=== PATIENT | male | born 1995 ===

== ENCOUNTER 2024-06-16 08:24 | Emergency (ER) | payer MEDICAID, SELFPAY ==
[2024-06-16 08:28] VITALS: BP 131/56; PULSE 83; RESP 18; TEMP 36.9; O2SAT 96; BMI 23.8
[2024-06-16 08:58] LABS: IDNOW Serial# 08D9AD1C; Strep A Nucleic Acid Positive (Negative)
--- NOTE | 2024-06-16 09:19 | ED.GENADULT ---
HPI - General Adult General Chief complaint: Upper Respiratory Symptoms Stated complaint: Blood in urine, sore throat Time Seen by Provider: 06/16/24 09:04 Source: patient and RN notes reviewed Mode of arrival: ambulatory Limitations: no limitations History of Present Illness ED Provider: Porsche Kruse PA-C [facility] narrative: This is a 28-year-old male, with a history of IgA nephropathy, who presents to the emergency department with complaints of sore throat, body aches, nausea, subjective fevers and chills, headaches, and dark-colored urine since yesterday. He denies any dysuria. He does admit to urinary frequency and urgency. Denies any congestion, cough. He states that this presentation feels similar to the IgA nephropathy exacerbations he has had in the past. He is currently being followed by a kidney specialist out of [place]. No known fevers. No chest pain, shortness for breath, abdominal pain, nausea, vomiting or diarrhea. No other complaints or concerns at this time. MD complaint: Dark urine, sore throat Onset (ago): day(s) Radiation: non-radiation Relieving factors: none Exacerbating factors: none Associated symptoms: denies other symptoms Treatments prior to arrival: none Related Data Previous Rx's ?Medication ?Instructions ?Recorded amoxicillin 500 mg tablet 500 mg PO BID 10 days #19 tabs 06/16/24 Allergies Allergy/AdvReac Type Severity Reaction Status Date / Time acetaminophen [From VICODIN] Allergy Unknown RASH Verified 06/16/24 08:32 hydrocodone [From VICODIN] Allergy Unknown RASH Verified 06/16/24 08:32 ibuprofen [From MOTRIN] Allergy Unknown RASH Verified 06/16/24 08:32 Review of Systems Review of Systems: Yes all other systems are reviewed and are negative Constitutional: Constitutional: Reports as per [facility] Past Medical History Attestation statement: The following information was validated with the patient. Social History Social History Smoked in Last 30 Days: Yes Use of substances other than those prescribed or required for medical reasons: Yes Substance Use Type: Marijuana Advance Directives: No Advance Directives Information Provided: Yes Do you have a plan to hurt others: No Plan Physical Exam ED Vital Signs: Vital Signs - 24 hr 06/16/24 08:28 06/16/24 09:27 06/16/24 11:24 Temperature 98.4 F 99.4 F Pulse Rate 83 76 Respiratory Rate 18 16 Blood Pressure 131/56 L 113/65 Pulse Oximetry 96 96 98 Oxygen Delivery Method Room Air Room Air Room Air 06/16/24 11:57 Temperature 99.4 F Pulse Rate 76 Respiratory Rate 16 Blood Pressure 113/65 Pulse Oximetry 98 Oxygen Delivery Method Room Air BMI result Body Mass Index 23.8 Const General: cooperative, comfortable and no acute distress Orientation/consciousness: patient oriented x3 Limitations: no limitations HENMT Other: Bilateral tonsillar edema with exudates noted. Uvula is midline. Airway is widely patent. No trismus, drooling, or dysphonia. Head: Yes normal to inspection, Yes normocephalic and Yes atraumatic Ears: hearing grossly normal bilaterally and TM's normal bilaterally General nose exam: Normal external nose present Face and sinus: Yes normal facial exam Throat: Yes posterior oropharynx normal Eyes General: appearance normal, both eyes and all related structures Eyelids: Yes eyelids normal Conjunctivae: conjunctivae normal Sclerae: sclerae normal Pupils: Equal, round and reactive pupils present EOM: EOMs intact bilaterally Neck Neck: Yes normal visual inspection, Yes full ROM and Yes no lymphadenopathy Lymphatic: no lymphadenopathy noted Chest Chest palpation & inspection: normal inspection of the chest Resp Effort & Inspection: normal respiratory effort and able to speak in complete sentences Auscultation: clear to auscultation bilaterally, no crackles, no rales, no rhonchi and no wheezes Cardio Rate: regular rate Rhythm: regular rhythm Heart sounds: S1 normal heart sound present and S2 normal heart sound present GI Other: Abdomen is soft, nontender, nondistended Inspection: Yes normal to inspection General: Yes no CVA tenderness Back/Spine/Pelvis Back: no CVA tenderness Skin General skin exam: no rashes or lesions noted Trauma: no lacerations or abrasions Wounds: no wounds Neuro General: patient oriented x3 and moves all extremities Cranial nerves: Yes Equal, round and reactive pupils present Extrem General: Yes normal to inspection Right upper extremity: normal to inspection Left upper extremity: normal to inspection Right lower extremity: normal to inspection Left lower extremity: normal to inspection Course Reevaluation(s) Reevaluation #1: Patient afebrile, nontoxic-appearing, given elevated white count at 18.5, will obtain lactic and cultures. Urine returns, is brown, turbid, with a high specific gravity, proteinuria, moderate blood, moderate leuk esterases, and rbc's. There is squamous cells present. Negative nitrites. Sent message to [facility] (pt's lead quality control technician) at [phone], who will call me back for consultation. Time: 10:18 Reevaluation #2: Lactic acidosis negative. Patient used his cell phone to call his lead quality control technician as he was becoming increasingly impatient. I spoke to Dr. Moreno and went over case with him. Cover Seamer states that this is likely has exacerbation of IgA nephropathy, recommending just treatment with antibiotics and he will follow-up outpatient. His creatinine was 1.[address] Moreno. His creatinine today is 1.36. Patient given amoxicillin to treat for strep. Given strict return precautions. He understands and agrees with plan. Patient stable for discharge. Time: 12:05 Medications Administered Discontinued Medications Generic Name Dose Route Start Last Admin Trade Name Freq PRN Reason Stop Dose Admin Amoxicillin 500 mg 06/16/24 11:44 06/16/24 11:54 Amoxicillin 500 Mg Capsule PO 06/16/24 11:45 500 mg ONCE ONE Administration Medical Decision Making Medical Decision Making [facility] Narrative: This is a 28-year-old male, with a history of IgA nephropathy, who presents emergency department complaints of sore throat, body aches, subjective fevers and chills, headaches, body aches since yesterday. Vital signs within normal limits upon initial arrival. He is afebrile, speaking full sentences under no acute distress. Oropharynx is erythematous, with tonsillar exudates noted. Uvula is midline. Abdomen is soft and nontender. No CVA tenderness. Given history of IgA nephropathy and dark colored urine, will obtain basic labs. Differential Diagnosis Differential Diagnoses: The differential diagnosis associated with the presentation includes Streptococcal glomerular nephritis, IgA nephropathy, UTI, strep, URI, tonsillitis, Admission/Observation Consideration of admission/observation: Escalation of care including admission/observation considered Lab Data [facility] Lab Attestation statement: I reviewed the patient's lab results. Patient has leukocytosis at 18.5, with slight left shift, creatinine 1.36, BUN 16, T bili 1.1, urine brown, turbid, with high specific gravity, high protein, moderate blood, moderate leuk esterases, and rbc's. There is also crystals present 06/16/24 09:24 06/16/24 09:24 Labs: Lab Results 06/16/24 06/16/24 06/16/24 Range/Units 08:39 09:24 09:34 WBC 18.5 H (4.8-10.8) X10*3/uL RBC 3.93 L (4.60-5.80) X10*6/uL Hgb 12.3 L (14.0-18.0) g/dl Hct 35.0 L (42.0-52.0) % MCV 89.1 (80.0-98.0) fL MCH 31.3 (27.0-33.0) pg MCHC 35.1 (31.0-36.0) g/dl RDW 12.5 (11.0-16.0) % Plt Count 189 (160-400) X10*3/uL MPV 9.3 L (9.4-12.4) fL Immature Gran % (Auto) 0.5 H (0.0-0.4) % Neut % (Auto) 86.1 H (45-73) % Lymph % (Auto) 5.4 L (20-40) % [place] % (Auto) 7.6 (2-11) % Eos % (Auto) 0.1 (0-4) % Baso % (Auto) 0.3 (0-2) % Lymph # (Auto) 1.0 L (1.2-4.9) X10*3/uL [place] # (Auto) 1.4 H (0.1-1.2) X10*3/uL Eos # (Auto) 0.0 (0.0-0.4) X10*3/uL Baso # (Auto) 0.1 (0.0-0.2) X10*3/uL Abs Immat Gran (auto) 0.09 H (0.00-0.03) X10*3/uL Absolute Neuts (auto) 15.9 H (2.0-8.3) x10*3/uL Absolute Nucleated RBC 0.000 (0.0-0.012) X10*3/uL Nucleated RBC % (auto) 0.0 (0.0-0.2) /100WBC Sodium 138 (135-145) mmol/L Potassium 3.8 (3.3-5.1) mmol/L Chloride 104 (96-108) mmol/L Carbon Dioxide 27 (22-29) mmol/L Anion Gap 11 L (12-20) BUN 16 (9-16) mg/dL Creatinine 1.36 (0.5-1.4) mg/dL Estim Creat Clear Calc 84.5 Estimated GFR > 60 Random Glucose 96 (60-115) mg/dL Lactic Acid (0.5-2.0) mmol/L Calcium 9.4 (8.4-10.2) mg/dL Total Bilirubin 1.1 H (0.0-1.0) mg/dL Direct Bilirubin 0.4 (0.0-0.5) mg/dL AST 25 (5-37) U/L ALT 11 (0-40) U/L Alkaline Phosphatase 64 (39-117) U/L B-Natriuretic Peptide 20 (<100) pg/mL Total Protein 7.1 (6.5-8.0) g/dL Albumin 4.2 (3.5-5.0) g/dL Urine Color Brown A Urine Appearance Turbid Urine pH 5.0 (5.0-9.0) Ur Specific [place] >= 1.030 H (1.005-1.025) Urine Protein 300 (3+) H (Neg-Trace) mg/dL Urine Glucose (UA) Negative (Negative) mg/dL Urine Ketones 40 (Negative) mg/dL Urine Blood Moderate (2+) H (Negative) Urine Nitrite Negative (Negative) Ur Leukocyte Esterase Moderate (2+) H (Negative) Urine RBC 6-10 H (0-2) /HPF Urine WBC 6-10 (0-5) /HPF Ur Squamous Epith Cells 3-5 (0-2) /HPF Other Crystals Present Urine Bacteria Trace (None Seen) Hyaline Casts 0-2 (0-2) /LPF Influenza Type A (PCR) NEGATIVE (Negative) Influenza Type B (PCR) NEGATIVE (Negative) RSV RNA Qual (PCR) NEGATIVE (Negative) SARS-CoV-2 RNA (RT-PCR) NEGATIVE (Negative) S. pyogenes GrpA KRISTINA Positive A (Negative) 06/16/24 Range/Units 10:11 WBC (4.8-10.8) X10*3/uL RBC (4.60-5.80) X10*6/uL Hgb (14.0-18.0) g/dl Hct (42.0-52.0) % MCV (80.0-98.0) fL MCH (27.0-33.0) pg MCHC (31.0-36.0) g/dl RDW (11.0-16.0) % Plt Count (160-400) X10*3/uL MPV (9.4-12.4) fL Immature Gran % (Auto) (0.0-0.4) % Neut % (Auto) (45-73) % Lymph % (Auto) (20-40) % [place] % (Auto) (2-11) % Eos % (Auto) (0-4) % Baso % (Auto) (0-2) % Lymph # (Auto) (1.2-4.9) X10*3/uL [place] # (Auto) (0.1-1.2) X10*3/uL Eos # (Auto) (0.0-0.4) X10*3/uL Baso # (Auto) (0.0-0.2) X10*3/uL Abs Immat Gran (auto) (0.00-0.03) X10*3/uL Absolute Neuts (auto) (2.0-8.3) x10*3/uL Absolute Nucleated RBC (0.0-0.012) X10*3/uL Nucleated RBC % (auto) (0.0-0.2) /100WBC Sodium (135-145) mmol/L Potassium (3.3-5.1) mmol/L Chloride (96-108) mmol/L Carbon Dioxide (22-29) mmol/L Anion Gap (12-20) BUN (9-16) mg/dL Creatinine (0.5-1.4) mg/dL Estim Creat Clear Calc Estimated GFR Random Glucose (60-115) mg/dL Lactic Acid 0.7 (0.5-2.0) mmol/L Calcium (8.4-10.2) mg/dL Total Bilirubin (0.0-1.0) mg/dL Direct Bilirubin (0.0-0.5) mg/dL AST (5-37) U/L ALT (0-40) U/L Alkaline Phosphatase (39-117) U/L B-Natriuretic Peptide (<100) pg/mL Total Protein (6.5-8.0) g/dL Albumin (3.5-5.0) g/dL Urine Color Urine Appearance Urine pH (5.0-9.0) Ur Specific [place] (1.005-1.025) Urine Protein (Neg-Trace) mg/dL Urine Glucose (UA) (Negative) mg/dL Urine Ketones (Negative) mg/dL Urine Blood (Negative) Urine Nitrite (Negative) Ur Leukocyte Esterase (Negative) Urine RBC (0-2) /HPF Urine WBC (0-5) /HPF Ur Squamous Epith Cells (0-2) /HPF Other Crystals Urine Bacteria (None Seen) Hyaline Casts (0-2) /LPF Influenza Type A (PCR) (Negative) Influenza Type B (PCR) (Negative) RSV RNA Qual (PCR) (Negative) SARS-CoV-2 RNA (RT-PCR) (Negative) S. pyogenes GrpA KRISTINA (Negative) Chronic Conditions Patient?s care impacted by: Other (IgA nephropathy ) Discharge Plan Discharge Clinical Impression: Strep throat, Glomerulonephritis, streptococcal, acute Patient Disposition: Home, Self-Care Instructions: Strep Throat (ED), Hematuria (ED) Additional Instructions: You were seen in the emergency department due to sore throat and urinary symptoms. Please take prescribed antibiotic. You tested positive for strep throat today. Please take full course even if you are feeling better. Follow-up with your lead quality control technician, call today to make an follow-up appointment Drink plenty of fluids get plenty of rest. Make sure you throw away your toothbrush after being on the antibiotics for 48 hours as you can re-infect yourself. If any new or worsening symptoms occur including but not limited to worsening sore throat, inability to swallow, swelling, body aches, worsening urinary symptoms, please seek emergent care. Prescriptions: New amoxicillin 500 mg tablet 500 mg PO BID 10 Days Qty: 19 0RF Stand Alone Forms: Work/School Release Interventions: ED Discharge Assessment Last Done: 06/16/24 11:57 Discharge Date/Time: 06/16/24 11:57 Print Language: German
[2024-06-16 09:27] VITALS: O2SAT 96
[2024-06-16 09:28] LABS: MANUAL DIFF FLAG NO
[2024-06-16 09:30] LABS: Basophils Absolute Auto 0.1 X10*3/uL (0.0-0.2); Basophils Percent Auto 0.3 % (0-2); Eosinophils Percent Auto 0.1 % (0-4); Hemoglobin 12.3 g/dl (14.0-18.0); Imm Gran Abs Auto 0.09 X10*3/uL (0.00-0.03); Imm Gran Pct Auto 0.5 % (0.0-0.4); Lymphocytes Percent Auto 5.4 % (20-40); Mean Corpuscular HGB Conc 35.1 g/dl (31.0-36.0); Mean Corpuscular Hemoglobin 31.3 pg (27.0-33.0); Mean Corpuscular Volume 89.1 fL (80.0-98.0); Mean Platelet Volume 9.3 fL (9.4-12.4); Monocytes Absolute Auto 1.4 X10*3/uL (0.1-1.2); Monocytes Percent Auto 7.6 % (2-11); Neutrophils Absolute Auto 15.9 x10*3/uL (2.0-8.3); Neutrophils Percent Auto 86.1 % (45-73); Platelet Count 189 X10*3/uL (160-400); Red Blood Count 3.93 X10*6/uL (4.60-5.80); Red Cell Distribution Width 12.5 % (11.0-16.0); White Blood Count 18.5 X10*3/uL (4.8-10.8)
[2024-06-16 09:44] LABS: Appearance Urine Turbid; Glucose Urine UA Negative (Negative); Leukocyte Esterase Urine Moderate (2+) (Negative); Nitrite Urine Negative (Negative); Specific Gravity - Urine >= 1.030 (1.005-1.025); UMIC TRIGGER UACC YES; Urine Blood Moderate (2+) (Negative); Urine Ketones 40 mg/dL (Negative); Urine Protein 300 (3+) mg/dL (Neg-Trace)
[2024-06-16 09:45] LABS: Alanine Aminotransferase 11 U/L (0-40); Albumin Level 4.2 g/dL (3.5-5.0); Alkaline Phosphatase 64 U/L (39-117); Anion Gap 11 (12-20); Aspartate Amino Transferase 25 U/L (5-37); Bilirubin Direct 0.4 mg/dL (0.0-0.5); Bilirubin Total 1.1 mg/dL (0.0-1.0); Blood Urea Nitrogen 16 mg/dL (9-16); Calcium 9.4 mg/dL (8.4-10.2); Carbon Dioxide 27 mmol/L (22-29); Chloride 104 mmol/L (96-108); Creatinine Clr Calc Pharmacy 84.5; Estimated Glomerular Filt Rate > 60; Glucose Random 96 mg/dL (60-115); Potassium 3.8 mmol/L (3.3-5.1); Sodium 138 mmol/L (135-145); Total Protein 7.1 g/dL (6.5-8.0)
[2024-06-16 09:45] LABS: Color Urine Brown
[2024-06-16 09:52] LABS: Influenza A PCR NEGATIVE (Negative); Influenza B PCR NEGATIVE (Negative); Resp Syncy Virus RNA Qual PCR NEGATIVE (Negative); SARS COV2 PCR INHOUSE NEGATIVE (Negative)
[2024-06-16 09:58] LABS: Bacteria Urine Trace (None Seen); Hyaline Casts Urine 0-2 /LPF (0-2); Other Crystals Urine Present; UACC Culture Trigger YES
[2024-06-16 10:34] LABS: Lactic Acid 0.7 mmol/L (0.5-2.0)
[2024-06-16 10:40] LABS: B Type Natriuretic Peptide 20 pg/mL (<100)
[2024-06-16 11:24] VITALS: BP 113/65; PULSE 76; RESP 16; TEMP 37.4; O2SAT 98
[2024-06-16] MEDS: Amoxicillin 500 MG CAPSULE PO (11:54)
[2024-06-16 11:57] VITALS: BP 113/65; PULSE 76; RESP 16; TEMP 37.4; O2SAT 98
== END 2024-06-16 11:57 | disposition home or self-care (01) ==
PROVIDERS: Physician Assistant Medical; Emergency Provider Emergency Medicine; PCP Nurse Practitioner Family
DX: J02.0 Streptococcal pharyngitis (principal); R31.9 Hematuria, unspecified; N05.9 Unspecified nephritic syndrome with unspecified morphologic changes; M79.10 Myalgia, unspecified site; R11.2 Nausea with vomiting, unspecified; R35.0 Frequency of micturition; R50.9 Fever, unspecified; Z03.818 Encounter for observation for suspected exposure to other biological agents ruled out; Z79.899 Other long term (current) drug therapy
CPT/HCPCS: 0241U; 36415; 80053; 80076; 81001; 82248; 83605; 83880; 85025; 87040; 87086; 87651; 99283; 99284

== ENCOUNTER 2024-07-14 15:17 | Outpatient (REF) | payer MEDICAID, SELFPAY | END 2024-07-14 15:18 | disposition home or self-care (01) | LOC: HO.HOSX 15:17 | PROVIDERS: PCP Internal Medicine; Visit Provider Physician Assistant | DX: M25.561 Pain in right knee (principal); M25.562 Pain in left knee; S83.242A Other tear of medial meniscus, current injury, left knee, initial encounter | CPT/HCPCS: 73560; 73562; 99212 ==

== ENCOUNTER 2024-07-14 15:17 | Outpatient (AMB) | payer MEDICAID, SELFPAY ==
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
== END 2024-07-14 15:59 | disposition home or self-care (01) ==
PROVIDERS: PCP Internal Medicine; Visit Provider Physician Assistant
DX: S83.242A Other tear of medial meniscus, current injury, left knee, initial encounter (principal)
CPT/HCPCS: 99204

== ENCOUNTER 2024-09-09 08:26 | Outpatient (AMB) | payer MEDICAID, SELFPAY ==
--- NOTE | 2024-09-09 08:28 | A.OFFVIS_ITS ---
Vital Signs 09/09/24 08:32 Height 5 ft 11 in Weight 170 lb BMI 23.7 Intake Visit Reasons: Preop LT knee 09/21/24 NE Intake Note: Henry is a 28 year old male who presents today for a pre op appointment s/p LT knee 09/21/24 NE. Allergies acetaminophen [From VICODIN] Allergy (Unknown, Verified 07/14/24 15:21) RASH hydrocodone [From VICODIN] Allergy (Unknown, Verified 07/14/24 15:21) RASH ibuprofen [From MOTRIN] Allergy (Unknown, Verified 07/14/24 15:21) RASH HPI HPI Preop LT knee 09/21/24 NE: Details: Mr. Caldwell is a 28-year-old male who presents to the office today for his preoperative appointment pending left knee arthroscopy on 09/21/[address] White. Patient had an MRI that was performed in [place]. The MRI report is scanned into the chart however imaging has not been obtained. Earlier in the week, our office has reached out to the ordering facility and requested a disc be mailed. Reportedly, this has been done but has not been received by our office yet. [facility] Social History (Updated 07/14/24 @ 15:22 by Cielo Cassidy Hattie) Patient Tobacco Use Status: Current everyday Tobacco user Substance Use Type: Marijuana Current occupational status: employed Current occupation: [employer] Review of Systems Const All systems reviewed & are unremarkable except as noted in HPI and below Physical Exam Vital Signs: BMI result Body Mass Index 23.7 Const General: cooperative, healthy appearing, comfortable, no acute distress, well developed and alert Orientation/consciousness: patient oriented x3 HEENT Head: Yes normal to inspection, Yes normocephalic and Yes atraumatic Eyes General: appearance normal, both eyes and all related structures Resp Effort & Inspection: normal respiratory effort and able to speak in complete sentences Cardio Rate: regular rate Peripheral pulses: Peripheral pulses 2+ throughout Skin Lesions: no lesions Rashes: no rashes Neuro General: patient oriented x3 Extrem Other: Left knee: Skin intact, no erythema or joint effusion. Tenderness along the medial and lateral joint line. Full ROM with crepitus. Positive Roly?s. No ligamentous laxity. NVI. Assessment & Plan Assessment & Plan (1) Tear of medial meniscus of left knee: Code(s): S83.242A - Other tear of medial meniscus, current injury, left knee, initial encounter Category: Medical Plan Mr. Caldwell is a 28-year-old male who presents to the office today for his preoperative appointment pending left knee arthroscopy on 09/21/[address] White. Patient had an MRI that was performed in [place]. The MRI report is scanned into the chart however imaging has not been obtained. Earlier in the week, our office has reached out to the ordering facility and requested a disc be mailed. Unfortunately, the disc has not been received by our office yet. I discussed in detail the procedure and what to expect pre and post operatively. We discussed the risks, benefits and alternatives to the surgery as well as the rehabilitation course. The risks; which include, but are not limited to infection, bleeding, nerve injury, ongoing pain, swelling, and stiffness, pe rioperative risk of injury to bones and soft tissues, and blood clots. Post operative medications were sent to the pharmacy,?Oxycodone 5 mg p.o. Q 8 hours #21, p.r.n. pain, while in the office today. The patient was instructed that?he/she?should obtain the prescription prior to surgery but should not consume until after the procedure; as these should only be taken for postoperative pain management. Should the patient take these medications before surgery, a refill will not be sent to the pharmacy until their scheduled refill date.?? I?ve answered all questions and with their understanding they have consented to move forward with left knee arthroscopy with Dr. White. Medications: New oxycodone Partial Fill upon patient request. 5 mg PO Q8H PRN 21 tabs 0RF pain 7 days Coding Level of Care Code Global (22302) Diagnoses Tear of medial meniscus of left knee S83.242A
[2024-09-09 08:32] VITALS: BMI 23.7
--- OUTSIDE RECORDS SUMMARY | 2024-09-09 08:42 | XMS_ITS | Encounter Summary ---
Author Organization [facility] Address [address] [place] [phone] Phone Care Team Providers Care Financial Operations Clerk Name Role Phone Janice Lomax MD Primary Care Provider Unavailabl e Encounter Details Date Type Department Care Team (Late st Contact Info) Description 03/12/2017 Conversion Encounter [facility] - [address] [address] Social History Tobacco Use Types Packs/Day Years Used Date Smoking Tobacco: Never Assessed Sex and Gender Information Value Date Recorded Sex Assigned at Not on file Legal Sex Male 4:33 PM EDT Gender Identity Not on file Sexual Orientation Not on file documented as of this encounter Plan of Treatment Not on file documented as of this encounter Visit Diagnoses Not on filedocumented in this encounter Care Teams Financial Operations Clerk Relationship Specialty Start Date End Date Janice Lomax MD PCP - General 03/06/17 documented as of this encounter
--- OUTSIDE RECORDS SUMMARY | 2024-09-09 08:42 | XMS_ITS | Encounter Summary ---
Author Organization [facility], Address [address] [place] [address] Phone Care Team Providers Care Mainspring Torque Tester Name Role Phone Mirta Aponte MD Primary Care Provider Unav ailable Encounter Details Date Type Department Care Team (Late st Contact Info) Description 02/17/2024 Documentation Only [facility], [address] [place] [address] Tierney Gallardo [address] [place] [phone] Social History Tobacco Use Types Packs/Day Years Used Date Smoking Tobacco: Never Assessed Sex and Gender Information Value Date Recorded Sex Assigned at Not on file Legal Sex Male 9:48 AM EDT Gender Identity Not on file Sexual Orientation Not on file documented as of this encounter Plan of Treatment Not on file documented as of this encounter Visit Diagnoses Not on filedocumented in this encounter Care Teams Mainspring Torque Tester Relationship Specialty Start Date End Date Mirta Aponte MD [address] [place] [address] [place] [phone] PCP - General Internal Medicine 02/10/24 documented as of this encounter
--- OUTSIDE RECORDS SUMMARY | 2024-09-09 08:42 | XMS_ITS | Encounter Summary ---
Author Organization [facility] Address [address] [place] [address] Care Team Providers Care Soil Science Professor Name Role Phone Radha Wilcox Primary Care Provider [phone] Reason for Referral * Imaging (Routine) - Closed Specialty Diagnoses / Procedures Referred By Meaghan thornton Referred To Contact Radiology Diagnoses Asymptomatic microscopic hematuria Procedures US Retroperitoneal Complete Radha Wilcox Phone: tel: fax: [address] [address] Phone: tel: Referral ID Status Reason Start Date Expiration Date Visits Re quested Visits Authorized [id number] Closed 06/16/2024 06/16/2025 1 1 Reason for Visit * Imaging (Routine) - Closed Specialty Diagnoses / Procedures Referred By Meaghan thornton Referred To Contact Radiology Diagnoses Asymptomatic microscopic hematuria Procedures US Retroperitoneal Complete Radha Wilcox Phone: tel: fax: [address] [address] Phone: tel: Referral ID Status Reason Start Date Expiration Date Visits Re quested Visits Authorized [id number] Closed 06/16/2024 06/16/2025 1 1 Encounter Details Date Type Department Care Team (Latest Contact Info) Description 08/17/2024 2:45 PM EST - 08/17/2024 11:59 PM EST Hospital Encounter [facility] Ultrasound [address] [place] [address], [place] [address] Asymptomatic microscopic hematuria Discharge Disposition: Home or Self Care Social History Tobacco Use Types Packs/Day Years Used Date Smoking Tobacco: Never Assessed Sex and Gender Information Value Date Recorded Sex Assigned at Male 06/16/2024 11:41 AM EST Legal Sex Male 11:40 AM EST Gender Identity Male 06/22/2024 11:23 AM EST Sexual Orientation Straight 06/22/2024 11 :23 AM EST documented as of this encounter Discharge Disposition Disposition Code Departure Means Destination Home or Self Care documented in this encounter Plan of Treatment Not on file documented as of this encounter Procedures Procedure Name Priority Date/Time Associated Diagnosis Comments US RETROPERITONEAL COMPLETE Routine 08/17/2024 3:31 PM EST Asymptomatic microscopic hematuria documented in this encounter Results * US Retroperitoneal Complete (08/17/2024 3:31 PM EST) Anatomical Region Laterality Modality Body Ultrasound 08/22/2024 3:23 PM EST Narrative 08/22/2024 3:25 PM EST INDICATION: Microscopic hematuria. FINDINGS: Ultrasound of the kidneys and bladder. Bladder demonstrates normal wall thickness. There is no evidence of diverticulum. Bilateral ureteral jets are noted. Pre-void volume is 286cc. Bladder is empty after voiding. Nonvisualized ureteral jets. The right kidney measures 10.2cm and the left kidney measures 11.2cm. No hydronephrosis or nephrolithiasis is noted. There is normal cortical echogenicity and thickness. There is no evidence of renal mass. CONCLUSION: Normal ultrasound of kidneys and bladder. [id number] -------- FINAL REPORT -------- Dictated By: Mihir Aviles Dictated Date: 08/22/2024 15:23 ET Assigned Physician: Mihir Aviles Reviewed and Electronically Signed By: Mihir Aviles Signed Date: 08/22/2024 15:25 ET Workstation ID: [id number] Transcribed By: Self Edit Transcribed Date: 08/22/2024 15:23 ET Procedure Note Mihir Aviles MD - 08/22/2024 INDICATION: Microscopic hematuria. FINDINGS: Ultrasound of the kidneys and bladder. Bladder demonstrates normal wall thickness. There is no evidence ofdiverticulum. Bilateral ureteral jets are noted. Pre-void volume is 286cc.Bladder is empty after voiding. Nonvisualized ureteral jets. The right kidney measures 10.2cm and the left kidney measures 11.2cm. Nohydronephrosis or nephrolithiasis is noted. There is normal corticalechogenicity and thickness. There is no evidence of renal mass. CONCLUSION: Normal ultrasound of kidneys and bladder. [id number] -------- FINAL REPORT -------- Dictated By: Mihir Aviles Dictated Date: 08/22/2024 15:23 ET Assigned Physician: Mihir Aviles Reviewed and Electronically Signed By: Mihir Aviles Signed Date: 08/22/2024 15:25 ET Workstation ID: [id number] Transcribed By: Self Edit Transcribed Date: 08/22/2024 15:23 ET us Radha Axel IMG US PROCEDURES Final Result documented in this encounter Visit Diagnoses Diagnosis Asymptomatic microscopic hematuria documented in this encounter Care Teams Soil Science Professor Relationship Specialty Start Date End Date Radha Wilcox [address] [address] [place] [id number] PCP - General Family Medicine 06/22/24 documented as of this encounter
--- OUTSIDE RECORDS SUMMARY | 2024-09-09 08:42 | XMS_ITS | Encounter Summary ---
Author Organization [facility], Address [address] [place] [address] Phone Care Team Providers Care Sales Mgr Name Role Phone Mirta Aponte MD Primary Care Provider Unav ailable Encounter Details Date Type Department Care Team (Late st Contact Info) Description 03/25/2024 Documentation Only [facility], [address] [place] [address] [place] [address] [place] [address] Social History Tobacco Use Types Packs/Day [...] on filedocumented in this encounter Care Teams Sales Mgr Relationship Specialty Start Date End Date Mirta Aponte MD [address] [place] [address] [place] [address] PCP - General Internal Medicine 02/10/24 documented as of this encounter
--- OUTSIDE RECORDS SUMMARY | 2024-09-09 08:42 | XMS_ITS | Clinical Summary ---
Author Organization [facility], Address [address] [place] [address] [place] [address] Phone Care Team Providers Care Organisation And Methods Analyst Name Role Phone Mirta Aponte MD Primary Care Provider Unav ailable Allergies No known active allergies Medications losartan (Cozaar) 50 MG tablet Take 1 tablet (50 mg total) by mouth 1 (one) time each day 30 tablet 11 03/16/2024 5 Active Active Problems Problem Noted Date Diagnosed Date Kidney injury 02/17/2024 Social History Tobacco Use Types Packs/Day Years Used Date Smoking Tobacco: Never Assessed Sex and Gender Information Value Date Recorded Sex Assigned at Not on file Legal Sex Male 9:48 AM EDT Gender Identity Not on file Sexual Orientation Not on file Plan of Treatment Health Maintenance Due Date Last Done Comments Pneumococcal Vaccine: Pediat rics (0 to 5 Years) and At-Risk Patients (6 to 64 Years) (1 of 2 - PCV) 09/30/1999 Hepatitis B Vaccine (1 of 3 - 19+ 3-dose series) 09/29 Influenza Vaccine (#1) 2024 Insurance MEDICAID [place] Care Teams Organisation And Methods Analyst Relationship Specialty Start Date End Date Mirta Aponte MD [address] [place] [address] [place] [address] PCP - General Internal Medicine 02/10/24
--- OUTSIDE RECORDS SUMMARY | 2024-09-09 08:42 | XMS_ITS | Encounter Summary ---
Author Organization [facility], Address [address] [place] [address] Phone Care Team Providers Care Lead Data Entry Operator Name Role Phone Mirta Aponte MD Primary Care Provider Unav ailable Encounter Details Date Type Department Care Team (Late st Contact Info) Description 04/27/2024 Documentation Only [facility], [facility] [address] [place] [address] Sami Tierney [address] [place] [address] Social History Tobacco Use Types Packs/Day [...] on filedocumented in this encounter Care Teams Lead Data Entry Operator Relationship Specialty Start Date End Date Mirta Aponte MD [address] [place] [address] [address] [place] [address] PCP - General Internal Medicine 02/10/24 documented as of this encounter
--- OUTSIDE RECORDS SUMMARY | 2024-09-09 08:42 | XMS_ITS | Encounter Summary ---
Author Organization [facility], Address [address] [place] [address] Phone Care Team Providers Care Disintegrator Operator Name Role Phone Mirta Aponte MD Primary Care Provider Unav ailable Encounter Details Date Type Department Care Team (Late st Contact Info) Description 02/17/2024 Documentation Only [facility], [address] [place] [address] Tierney Gallardo [address] [place] [phone] Social History Tobacco Use Types Packs/Day [...] on filedocumented in this encounter Care Teams Disintegrator Operator Relationship Specialty Start Date End Date Mirta Aponte MD [address] [place] [address] [place] [address] PCP - General Internal Medicine 02/10/24 documented as of this encounter
--- OUTSIDE RECORDS SUMMARY | 2024-09-09 08:42 | XMS_ITS | Encounter Summary ---
Author Organization [facility], Address [address] [place] [address] Phone Care Team Providers Care Precision Grinder External Name Role Phone Mirta Aponte MD Primary Care Provider Unav ailable Encounter Details Date Type Department Care Team (Late st Contact Info) Description 02/17/2024 Documentation Only [facility], [address] [place] [address] Tierney Gallardo [address] [place] [phone] Social History Tobacco Use Types Packs/Day [...] on filedocumented in this encounter Care Teams Precision Grinder External Relationship Specialty Start Date End Date Mirta Aponte MD [address] [place] [address] [place] [address] PCP - General Internal Medicine 02/10/24 documented as of this encounter
--- OUTSIDE RECORDS SUMMARY | 2024-09-09 08:42 | XMS_ITS | Encounter Summary ---
Author Organization [facility], Address [address] [place] [address] Phone Care Team Providers Care Metal Expediter Name Role Phone Mirta Aponte MD Primary Care Provider Unav ailable Encounter Details Date Type Department Care Team (Late st Contact Info) Description 02/17/2024 Documentation Only [facility], [address] [place] [address] Tierney Gallardo [address] [place] [phone] Social History Tobacco Use Types Packs/Day [...] on filedocumented in this encounter Care Teams Metal Expediter Relationship Specialty Start Date End Date Mirta Aponte MD [address] [place] [address] [place] [address] PCP - General Internal Medicine 02/10/24 documented as of this encounter
--- OUTSIDE RECORDS SUMMARY | 2024-09-09 08:42 | XMS_ITS | Clinical Summary ---
Author Organization [facility] Address [address] [place] [address] Phone Care Team Providers Care Foot Piece Assembler Name Role Phone Janice Lomax MD Primary Care Provider Unavailabl e Immunizations Immunization Administration Dates Next Due DTP 03/19/1995,07/17/1994,03/26/1994 ,1993 DTaP 5 06/13/1998 H1N1 07/06/2009 Hep B, ped/adol 07/17/1994,1993,1993 Hib (PRP-T) 03/19/1995,07/17/1994,03/26/1994 ,1993 IPV 06/13/1998, 5,07/17/1994,03/26/1994 ,1993 Influenza, injectable, trivalent 05/24/2007,07/28 MMR 02/09/1997,03/19/1995 Meningococcal Polysaccharide 08/28/2005 Tdap 08/28/2005 Varicella 02/12/1999 Family History Relation Name Status Comments Brother Alive Father Alive Father: Allergi es /Psych. Mother Alive Mother: Asthma Social History Tobacco Use Types Packs/Day Years Used Date Smoking Tobacco: Never Assessed Sex and Gender Information Value Date Recorded Sex Assigned at Not on file Legal Sex Male 4:33 PM EDT Gender Identity Not on file Sexual Orientation Not on file Plan of Treatment Health Maintenance Due Date Last Done Comments Varicella Vaccines (2 of 2 - 2-dose childhood series) 05/07/1999 02/12/1999 Consider Men B Vaccine (1 of 2 - Bexsero 2-dose series) 2009 DTaP,Tdap,and Td Vaccines (7 - Td or Tdap) 08/28/2015 08/28/2005, 06/13/1998, 03/19/1995, Additional history exists Influenza Vaccines (#1) 2024 05/24/2007, 08/16 COVID-19 Vaccine ( season) 2024 Hepatitis B Vaccines Completed 07/17/1994, 1993, 1993 HIB Vaccines Completed 03/19/1995, 06/27, 03/26/1994, Additional history exists MMR Vaccines Completed 02/09/1997, 03/19/1995 IPV Vaccines Completed 06/13/1998, 02/25, 07/17/1994, Additional history exists HPV Vaccines Aged Out No longer eligi ble based on patient's age to complete this topic Hepatitis A Vaccines Aged Out No long er eligible based on patient's age to complete this topic Men B Vaccine Aged Out No longer elig ible based on patient's age to complete this topic Meningococcal Vaccine Aged Out No keith joy eligible based on patient's age to complete this topic Pneumococcal Vaccine Aged Out No long er eligible based on patient's age to complete this topic Care Teams Foot Piece Assembler Relationship Specialty Start Date End Date Janice Lomax MD PCP - General 03/06/17
--- OUTSIDE RECORDS SUMMARY | 2024-09-09 08:42 | XMS_ITS | Clinical Summary ---
Author Organization [facility] Address [address] [place] [address] Phone Care Team Providers Care Mold Dresser Name Role Phone AlanisLizzySbavinash Radha Primary Care Provider [phone] Encounters Date Type Department Care Team Description 08/17/2024 2:45 PM EST - 08/17/2024 11:59 PM EST Hospital Encounter [facility] Ultrasound [address] [place] [address] Asymptomatic microscopic hematuria Discharge Disposition: Home or Self Care from Last 3 Months Social History Tobacco Use Types Packs/Day Years Used Date Smoking Tobacco: Never Assessed Sex and Gender Information Value Date Recorded Sex Assigned at Male 06/16/2024 11:41 AM EST Legal Sex Male 11:40 AM EST Gender Identity Male 06/22/2024 11:23 AM EST Sexual Orientation Straight 06/22/2024 11 :23 AM EST Plan of Treatment Health Maintenance Due Date Last Done Comments DTaP,Tdap,and Td Vaccines (1 - Tdap) 2012 Hepatitis B Vaccines (1 of 3 - 19+ 3-dose series) 2012 COVID-19 Vaccine ( - 2023-2 5 season) 2024 Influenza Vaccine (#1) 2024 Depression Screening 06/16/2024 HIV Screening 06/16/2024 Social Influencers of Health Screening 06/16/2024 Hepatitis C Screening Completed 03/04/2024 , 02/04/2024 HIB Vaccines Aged Out No longer eligi ble based on patient's age to complete this topic HPV Vaccines Aged Out No longer eligi ble based on patient's age to complete this topic Hepatitis A Vaccines Aged Out No long er eligible based on patient's age to complete this topic IPV Vaccines Aged Out No longer eligi ble based on patient's age to complete this topic MMR Vaccines Aged Out No longer eligi ble based on patient's age to complete this topic Meningococcal ACWY Vaccine Aged Out N o longer eligible based on patient's age to complete this topic Meningococcal B Vacine Aged Out No lo nger eligible based on patient's age to complete this topic Pneumococcal Vaccine: Pediatrics (0 to 5 Years) and At-Risk Patients (6 to 64 Years) Aged Out No longer eligible b ased on patient's age to complete this topic RSV Immunization Patients Under 20 months Aged Out No longer eligible b ased on patient's age to complete this topic Varicella Vaccines Aged Out No longer eligible based on patient's age to complete this topic Procedures Procedure Name Priority Date/Time Associated Diagnosis Comments US RETROPERITONEAL COMPLETE Routine 08/17/2024 3:31 PM EST Asymptomatic microscopic hematuria from Last 3 Months Results * US Retroperitoneal Complete (08/17/2024 3:31 [...] CONCLUSION: Normal ultrasound of kidneys and bladder. [id number] -------- FINAL REPORT -------- Dictated By: Mihir Aviles Dictated Date: 08/22/2024 15:23 ET Assigned Physician: Mihir Aviles Reviewed and Electronically Signed By: Mihir Aviles Signed Date: 08/22/2024 15:25 ET Workstation ID: [id number] Transcribed By: Self Edit Transcribed Date: 08/22/2024 [...] CONCLUSION: Normal ultrasound of kidneys and bladder. [id number] -------- FINAL REPORT -------- Dictated By: Mihir Aviles Dictated Date: 08/22/2024 15:23 ET Assigned Physician: Mihir Aviles Reviewed and Electronically Signed By: Mihir Aviles Signed Date: 08/22/2024 15:25 ET Workstation ID: [id number] Transcribed By: Self Edit Transcribed Date: 08/22/2024 15:23 ET us Radha Uko-Abasi IMG US PROCEDURES Final Result from Last 3 Months Insurance MED[place]ID - [place] [employer] Care Teams Mold Dresser Relationship Specialty Start Date End Date Radha Wilcox [address] [place] [address] PCP - General Family Medicine 06/22/24
== END 2024-09-09 08:47 | disposition home or self-care (01) ==
PROVIDERS: PCP Nurse Practitioner Family; Visit Provider Physician Assistant
DX: S83.242A Other tear of medial meniscus, current injury, left knee, initial encounter (principal)
CPT/HCPCS: 99024

== ENCOUNTER → 2024-09-09 08:26 | Outpatient (BNVA) | payer MEDICAID, SELFPAY | PROVIDERS: PCP Nurse Practitioner Family; Visit Provider Physician Assistant | DX: Z01.818 Encounter for other preprocedural examination (principal); S83.242A Other tear of medial meniscus, current injury, left knee, initial encounter; X58.XXXA Exposure to other specified factors, initial encounter; Y93.9 Activity, unspecified; Y92.9 Unspecified place or not applicable; Y99.9 Unspecified external cause status | CPT/HCPCS: 99212 ==

== ENCOUNTER → 2024-09-21 13:26 | Day surgery (SDC) | payer MEDICAID, SELFPAY ==
[2024-09-19 08:02] VITALS: BMI 23.7
--- NOTE | 2024-09-20 10:19 | HO.ANESPROP2 ---
HPI - Anesthesia Eval Consult details Narrative: 28yo M for Left Knee Arthroscopy Unable to reach pt by phone to confirm APAP allergy PMFSH Active Problems Active Problems: All Active Problems Tear of medial meniscus of left knee (Acute) Past Medical History Medical History (Updated 09/20/24 @ 10:19 by Debo Gonzalez NP) IgA nephropathy Social History Social History (Updated 07/14/24 @ 15:22 by MINNA English) Patient Tobacco Use Status: Current everyday Tobacco user Substance Use Type: Marijuana Current occupational status: employed Current occupation: [employer] Meds Allergies Allergy/AdvReac Type Severity Reaction Status Date / Time acetaminophen [From VICODIN] Allergy Unknown RASH Verified 07/14/24 15:21 hydrocodone [From VICODIN] Allergy Unknown RASH Verified 07/14/24 15:21 ibuprofen [From MOTRIN] Allergy Unknown RASH Verified 07/14/24 15:21 Home Medications ?Medication ?Instructions ?Recorded ?Confirmed ?Last Taken ?Type losartan 50 mg tablet 50 mg PO DAILY 07/14/24 Unknown History Exam Height,Weight and Vital Signs: Height 5 ft 11 in Weight 77.111 kg Pertinent Lab Results Pertinent Lab Results: Laboratory Tests 06/16/24 09:24 Sodium 138 Potassium 3.8 Chloride 104 Carbon Dioxide 27 BUN 16 Creatinine 1.36 Assessment and Plan Assessment Anesthesia Assessment: Chart Reviewed
== END | disposition home or self-care (01) ==
LOC: HO.SSS 13:28
PROVIDERS: PCP Nurse Practitioner Family; Visit Provider Orthopaedic Surgery
DX: S83.242A Other tear of medial meniscus, current injury, left knee, initial encounter (principal); Z53.09 Procedure and treatment not carried out because of other contraindication
CPT/HCPCS: J2003; J2704; J3010

== ENCOUNTER 2024-10-18 06:08 | Day surgery (SDC) | payer MEDICAID, SELFPAY ==
[2024-10-18] VITALS (8 sets, daily range): BP systolic 107–119; BP diastolic 47–81; PULSE 52–75; RESP 16–20; TEMP 36.2–36.9; O2SAT 96–100; BMI 24.5
[2024-10-18] MEDS: Lactated Ringers 1,000 ML 50 ML IVCONT (06:35)
--- NOTE | 2024-10-18 07:32 | MHC.SHP ---
Pre-Procedural Eval Section A - 24 Hr Update-Section A only Date of Service: 10/18/24 The patient is an INPATIENT: No Changes since office visit: No Cold of Flu in the past 2 weeks, No New Medical Problems, No Changes in Medication and No Patient answered all questions The patient has been examined within 24 hours of the surgical procedure. The History & Physical has been completed within 30 days and I have reviewed it.: Yes Section B - Complete if H&P > 30 days Chief Complaint: Other tear of medial meniscus, current injury, Allergies: Allergies Allergy/AdvReac Type Severity Reaction Status Date / Time acetaminophen [From VICODIN] Allergy Unknown RASH Verified 07/14/24 15:21 hydrocodone [From VICODIN] Allergy Unknown RASH Verified 07/14/24 15:21 ibuprofen [From MOTRIN] Allergy Unknown RASH Verified 07/14/24 15:21 Plan I have reviewed the history and physical and performed a pertinent physical examination on my patient. No changes have occurred unless specified. Time Spent With Patient Time: Total time managing care of this patient today ____ minutes.
[2024-10-18] MEDS: ceFAZolin Sodium/Dextrose,Iso 2 GM/50 ML PIGGYBACK IV (07:35)
--- NOTE | 2024-10-18 07:36 | HO.ANESPROP2 ---
HPI - Anesthesia Eval Consult details Narrative: knee arthroscopy PMFSH Active Problems Active Problems: All Active Problems Tear of medial meniscus of left knee (Acute) Past Medical History Medical History IgA nephropathy Family History Family history of problems with anesthesia: No Surgical History History of Problems with Anesthesia: No Social History Social History Patient Tobacco Use Status: Current everyday Tobacco user Substance Use Type: Marijuana Substance Use Frequency: Chronic Longstanding Have you been hit, kicked, punched, or otherwise hurt by someone within the past year? If so, by whom?: No Are you DNR?: No Advance Directives: No Advance Directives Information Provided: Yes Current occupational status: employed Current occupation: [employer] Meds Allergies Allergy/AdvReac Type Severity Reaction Status Date / Time acetaminophen [From VICODIN] Allergy Unknown RASH Verified 07/14/24 15:21 hydrocodone [From VICODIN] Allergy Unknown RASH Verified 07/14/24 15:21 ibuprofen [From MOTRIN] Allergy Unknown RASH Verified 07/14/24 15:21 Active Medications: Current Medications Lactated Ringer's (Lr) 1,000 mls @ 50 mls/hr IVCONT .Q20H CHRIS Last Admin: 10/18/24 06:35 Dose: 50 mls/hr Exam Height,Weight and Vital Signs: Height 5 ft 11 in Weight 79.833 kg Last Vital Signs Temp 98.5 F 10/18/24 06:12 Pulse 75 10/18/24 06:12 Resp 20 10/18/24 06:12 BP 118/81 10/18/24 06:12 Pulse Ox 99 10/18/24 06:12 O2 Del Method Room Air 10/18/24 06:12 Airway Mallampati Class: II TM Dist: >3cm Neck ROM: Full Heart: rrr Assessment and Plan Assessment Anesthesia Assessment: Anesthesia Plan Discussed and Chart Reviewed Final Anesthetic Review Family History of Problems with Anesthesia: No History of Problems with Anesthesia: No NPO: Yes ASA Class: III (excessive marihuana smoker plus cigarettes) Final Preanesthetic Review: No Changes in Pt Med Stat, Meds/Allgs Chart Reviewed, Consent Obtained/Reviewed and Anes Risks/Benef Reviewed Patient Risk: Intermediate Procedure Risk: Low Anesthetic Plan Anesthetic Plan: GA Disposition: Standard PACU
[2024-10-18] MEDS: HYDROmorphone HCl 0.5 MG/0.5 ML SYRINGE 0.25 MG IVPUSH (08:36)
--- NOTE | 2024-10-18 12:51 | P.BOP_ITS ---
Brief Operative Note Date of Service: 10/18/24 Pre-op diagnosis: left knee MMT Post-op diagnosis: same Procedure: Partial medial meniscectomy left knee Surgeon: Cirilo White MD Anesthesia: GLMA and local Was an Foxing Cutting Machine Operator used for this Procedure?: No Estimated blood loss (mL): 5 Tourniquet time (min): 20 IV fluids (mL): 500 Pathology: none sent Condition: stable Disposition: PACU
--- NOTE | 2024-10-18 18:16 | P.OP_ITS ---
Operative Note Operative Note Date of Service: 10/18/24 Narrative: Date of Service: 10/18/24 Pre-op diagnosis: left knee MMT Post-op diagnosis: same Procedure: Partial medial meniscectomy left knee Surgeon: Cirilo White MD Anesthesia: GLMA and local Was an Roll Coating Machine Operator used for this Procedure?: No Estimated blood loss (mL): 5 Tourniquet time (min): 20 IV fluids (mL): 500 Pathology: none sent Condition: stable Disposition: PACU Procedure in detail: Patient was brought to the operating room placed supine on the arthroscopic table and prepped and draped in standard sterile fashion. A time-out was called to identify proper site proper procedure proper surgeon and IV antibiotics per weight were administered. I began by exsanguinating the limb and insufflating tourniquet to 300 mm Hg. Then made a standard anterolateral stab incision. The knee was insufflated with water and 30 degree arthroscope was placed. There was grade 0 fibrillations of the patella and suprapatellar pouch and the gutters were clean. I descended into the medial compartment where I made my medial port al under direct visualization. There was a flap tear of the body of the medial meniscus. The root was intact and there was grade 0 changes in the tibial plateau/MFCl. I used a combination of biter shaver to remove unstable portions of the meniscus. Approximately 20% meniscal volume was removed. Once I was satsfied with this the ACL was examined and found to be intact and the lateral compartment also was without the need for intervention. I then removed all instrumentation and closed the portals with skin glue. 25 mL of 2% Marcaine with epinephrine was injected into the joint and the surrounding soft tissues. Patient was then placed in sterile dressing extubated brought recovery room stable condition. There were no known complications.
== END 2024-10-18 10:17 | disposition home or self-care (01) ==
PROVIDERS: PCP Nurse Practitioner Family; Visit Provider Orthopaedic Surgery
PROC: (CPT 29870; principal; 2024-10-18 07:30)
DX: S83.242A Other tear of medial meniscus, current injury, left knee, initial encounter (principal); X58.XXXA Exposure to other specified factors, initial encounter; Y93.9 Activity, unspecified; Y92.9 Unspecified place or not applicable; Y99.9 Unspecified external cause status; N02.B1 Recurrent and persistent immunoglobulin A nephropathy with glomerular lesion; Z88.5 Allergy status to narcotic agent; Z88.6 Allergy status to analgesic agent; F17.210 Nicotine dependence, cigarettes, uncomplicated
CPT/HCPCS: 29881; J0131; J0171; J0690; J1100; J1171; J2003; J2405; J2704; J2795; J3010

== ENCOUNTER → 2024-10-18 06:08 | Outpatient (BNV) | payer MEDICAID, SELFPAY | PROVIDERS: PCP Nurse Practitioner Family; Visit Provider Orthopaedic Surgery | DX: S83.242A Other tear of medial meniscus, current injury, left knee, initial encounter (principal) | CPT/HCPCS: 29881 ==

== ENCOUNTER 2024-11-04 13:16 | Outpatient (AMB) | payer MEDICAID, SELFPAY ==
--- NOTE | 2024-11-04 13:26 | A.OFFVIS_ITS ---
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 attending pt 3 times a week. Allergies acetaminophen [From VICODIN] Allergy (Unknown, Verified 07/14/24 15:21) RASH hydrocodone [From VICODIN] Allergy (Unknown, Verified 07/14/24 15:21) RASH ibuprofen [From MOTRIN] Allergy (Unknown, Verified 07/14/24 15:21) RASH Medication List - Last Reconciled 11/04/24 by Zhao Apodaca PA-C oxycodone 5 mg PO Q6H PRN 7 days HPI HPI PO LT knee 10/18/24 NE: Details: 29-year-old gentleman returns to the office today status post left knee arthroscopy 10/18/[address] White. 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 He has no pain and is increasing activities as tolerated with caution. [facility] Medical History IgA nephropathy Social History Patient Tobacco Use Status: Current everyday Tobacco user Substance Use Type: Marijuana Current occupational status: employed Current occupation: [employer] Review of Systems Const All systems reviewed & are unremarkable except as noted in HPI and below Physical Exam Const General: cooperative and no acute distress Orientation/consciousness: patient oriented x3 Resp Effort & Inspection: normal respiratory effort and able to speak in complete sentences Cardio Peripheral pulses: Peripheral pulses 2+ throughout Neuro General: patient oriented x3 Extrem Other: Left knee incision is well healed. No erythema no joint effusion. He has full range of motion with good quad activation. Calf is supple and nontender neurovascularly intact. Results Reviewed Results Reviewed: Brief Operative Note Date of Service: 10/18/24 Pre-op diagnosis: left knee MMT Post-op diagnosis: same Procedure: Partial medial meniscectomy left knee Surgeon: Cirilo White MD Assessment & Plan Assessment & Plan (1) Tear of medial meniscus of left knee: Code(s): S83.242A - Other tear of medial meniscus, current injury, left knee, initial encounter Category: Medical Plan: The patient is progressing exceptionally well. He will continue with physical therapy to increase activities and improve function with preparation to return to work full duty on November 29. 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 If there is any questions or concerns he will contact our office otherwise follow up as needed. Coding Level of Care Code Global (03050) Diagnoses Tear of medial meniscus of left knee S83.242A
--- OUTSIDE RECORDS SUMMARY | 2024-11-04 13:43 | XMS_ITS | Encounter Summary ---
Author Organization [facility], Address [address] [place] [address] Phone Care Team Providers Care Fisheries Officer Name Role Phone Mirta Aponte MD Primary Care Provider Unav ailable Encounter Details Date Type Department Care Team (Late st Contact Info) Description 04/27/2024 Documentation Only [facility], [facility] Dr [address] [place] [address] Sami Tierney [address] [place] [phone] Social History Tobacco Use Types Packs/Day [...] on filedocumented in this encounter Care Teams Fisheries Officer Relationship Specialty Start Date End Date Mirta Aponte MD [address] [place] [address] [address] [place] [address] PCP - General Internal Medicine 02/10/24 documented as of this encounter
--- OUTSIDE RECORDS SUMMARY | 2024-11-04 13:43 | XMS_ITS | Clinical Summary ---
Author Organization [facility] Address [address] [place] [address] Phone Care Team Providers Care Director Hr Communications Name Role Phone AlanisLizzySbavinash Radha Primary Care Provider [phone] Encounters Date Type Department Care Team Description 08/17/2024 2:45 PM EST - 08/17/2024 11:59 PM EST Hospital Encounter [facility] Ultrasound [address] [place] [address] Asymptomatic microscopic hematuria Discharge Disposition: [...] age to complete this topic Meningococcal B Vaccine Aged Out No l onger eligible based on patient's age to complete [...] CONCLUSION: Normal ultrasound of kidneys and bladder. [address] -------- FINAL REPORT -------- Dictated By: Mihir Aviles Dictated Date: 08/22/2024 15:23 ET Assigned Physician: Mihir Aviles Reviewed and Electronically Signed By: Mihir Aviles Signed Date: 08/22/2024 15:25 ET Workstation ID: [id number] Transcribed By: Self Edit Transcribed Date: 08/22/2024 [...] CONCLUSION: Normal ultrasound of kidneys and bladder. [address] -------- FINAL REPORT -------- Dictated By: Mihir Aviles Dictated Date: 08/22/2024 15:23 ET Assigned Physician: Mihir Aviles Reviewed and Electronically Signed By: Mihir Aviles Signed Date: 08/22/2024 15:25 ET Workstation ID: [id number] Transcribed By: Self Edit Transcribed Date: 08/22/2024 15:23 ET us Radha Uko-Abasi IMG US PROCEDURES Final Result from Last 3 Months Insurance MEDICAID - [place] [employer] Care Teams Director Hr Communications Relationship Specialty Start Date End Date Radha Wilcox [address] [facility] [address] [place] [address] PCP - General Family Medicine 06/22/24
--- OUTSIDE RECORDS SUMMARY | 2024-11-04 13:43 | XMS_ITS | Encounter Summary ---
Author Organization [facility], Address [address] [place] [address] Phone Care Team Providers Care Gin Pole Operator Name Role Phone Mirta Aponte MD Primary Care Provider Unav ailable Encounter Details Date Type Department Care Team (Late st Contact Info) Description 02/17/2024 Documentation Only [facility], [address] [place] [address] Tierney Gallardo [address] [place] [phone] Social History Tobacco Use Types Packs/Day [...] on filedocumented in this encounter Care Teams Gin Pole Operator Relationship Specialty Start Date End Date Mirta Aponte MD [address] [place] [address] [place] [address] PCP - General Internal Medicine 02/10/24 documented as of this encounter
--- OUTSIDE RECORDS SUMMARY | 2024-11-04 13:43 | XMS_ITS | Encounter Summary ---
Author Organization [facility], Address [address] [place] [address] Phone Care Team Providers Care Dry House Operator Name Role Phone Mirta Aponte MD Primary Care Provider Unav ailable Encounter Details Date Type Department Care Team (Late st Contact Info) Description 02/17/2024 Documentation Only [facility], [address] [place] [address] Tierney Gallardo [address] [place] [phone] Social History Tobacco Use Types Packs/Day [...] on filedocumented in this encounter Care Teams Dry House Operator Relationship Specialty Start Date End Date Mirta Aponte MD [address] [place] [address] [place] [address] PCP - General Internal Medicine 02/10/24 documented as of this encounter
--- OUTSIDE RECORDS SUMMARY | 2024-11-04 13:43 | XMS_ITS | Encounter Summary ---
Author Organization [facility], Address [address] [place] [address] Phone Care Team Providers Care Trimming Machine Operator Name Role Phone Mirta Aponte MD Primary Care Provider Unav ailable Encounter Details Date Type Department Care Team (Late st Contact Info) Description 02/17/2024 Documentation Only [facility], [address] [place] [address] Tierney Gallardo [address] [place] [phone] Social History Tobacco Use Types Packs/Day [...] on filedocumented in this encounter Care Teams Trimming Machine Operator Relationship Specialty Start Date End Date Mirta Aponte MD [address] [place] [address] [place] [address] PCP - General Internal Medicine 02/10/24 documented as of this encounter
--- OUTSIDE RECORDS SUMMARY | 2024-11-04 13:43 | XMS_ITS | Encounter Summary ---
Author Organization [facility], Address [address] [place] [address] Phone Care Team Providers Care Patcher Name Role Phone Mirta Aponte MD Primary Care Provider Unav ailable Encounter Details Date Type Department Care Team (Late st Contact Info) Description 03/25/2024 Documentation Only [facility], [address] [place] [address] [place] [address] [place] [address] Social History Tobacco Use Types [...] on filedocumented in this encounter Care Teams Patcher Relationship Specialty Start Date End Date Mirta Aponte MD [address] [place] [address] [place] [address] PCP - General Internal Medicine 02/10/24 documented as of this encounter
--- OUTSIDE RECORDS SUMMARY | 2024-11-04 13:43 | XMS_ITS | Encounter Summary ---
Author Organization [facility] Address [address] [place] [address] Phone Care Team Providers Care Communication Manager Name Role Phone Janice Lomax MD Primary Care Provider Unavailabl e Encounter Details Date Type Department Care Team (Late st Contact Info) Description 03/12/2017 Conversion Encounter [facility] - [address] [address] Social History Tobacco Use Types Packs/Day Years [...] on filedocumented in this encounter Care Teams Communication Manager Relationship Specialty Start Date End Date Janice Lomax MD PCP - General 03/06/17 documented as of this encounter
--- OUTSIDE RECORDS SUMMARY | 2024-11-04 13:43 | XMS_ITS | Clinical Summary ---
Author Organization [facility], Address [address] [place] [address] [place] [address] Phone Care Team Providers Care Cartoonist Special Effects Name Role Phone Mirta Aponte MD Primary [...] Due Date Last Done Comments Pneumococcal Vaccine: Peds ( 0 to 5 Years) and At-Risk Patients (6 to 49 Years) (1 of 2 - PCV) 09/30/1999 Hepatitis B Vaccine (1 of 3 - 19+ 3-dose series) 09/29 Influenza Vaccine (Season Ended) 2025 Insurance Medicaid [place] Care Teams Cartoonist Special Effects Relationship Specialty Start Date End Date Mirta Aponte MD [address] [place] [address] [place] [address] PCP - General Internal Medicine 02/10/24
--- OUTSIDE RECORDS SUMMARY | 2024-11-04 13:43 | XMS_ITS | Clinical Summary ---
Author Organization [facility] Address [address] [place] [address] Phone Care Team Providers Care Stud Master/Mistress Name Role Phone Janice Lomax MD Primary [...] 2 - 2-dose childhood series) 05/07/1999 02/12/1999 DTaP,Tdap,and Td Vaccines (7 - Td or [...] age to complete this topic Care Teams Stud Master/Mistress Relationship Specialty Start Date End Date Janice Lomax MD PCP - General 03/06/17
--- OUTSIDE RECORDS SUMMARY | 2024-11-04 13:43 | XMS_ITS | Encounter Summary ---
Author Organization [facility], Address [address] [place] [address] Phone Care Team Providers Care Search Lead Name Role Phone Mirta Aponte MD Primary Care Provider Unav ailable Encounter Details Date Type Department Care Team (Late st Contact Info) Description 02/17/2024 Documentation Only [facility], [address] [place] [address] Tierney Gallardo [address] [place] [phone] Social History Tobacco Use Types Packs/Day [...] on filedocumented in this encounter Care Teams Search Lead Relationship Specialty Start Date End Date Mirta Aponte MD [address] [place] [address] [place] [address] PCP - General Internal Medicine 02/10/24 documented as of this encounter
== END 2024-11-04 13:43 | disposition home or self-care (01) ==
LOC: HO.HOS 13:17
PROVIDERS: PCP Nurse Practitioner Family; Visit Provider Physician Assistant
DX: S83.242A Other tear of medial meniscus, current injury, left knee, initial encounter (principal)
CPT/HCPCS: 99024

== ENCOUNTER → 2024-11-04 13:16 | Outpatient (BNVA) | payer MEDICAID, SELFPAY | PROVIDERS: PCP Nurse Practitioner Family; Visit Provider Physician Assistant | DX: S83.242D Other tear of medial meniscus, current injury, left knee, subsequent encounter (principal); X58.XXXD Exposure to other specified factors, subsequent encounter | CPT/HCPCS: 99212 ==